=== PATIENT | female | born 1995 | race Caucasian/White ===

== ENCOUNTER 2021-03-13 03:49 | Emergency (ER) | payer OTHER ==
[~2021-03-13] VITALS: Ht 165.1 cm; Wt 66.2 kg
[2021-03-13 03:54] VITALS: BP 147/85
--- NOTE | 2021-03-13 04:01 | NUR ---
PT AMBULATED TO ER BED 4
--- NOTE | 2021-03-13 04:09 | NUR ---
PT PRESENTED TO THE ER W/ CC OF RIGHT EYE LACERATION, PT STATED "SHE WAS BRUSHING HER TEETH FROM THE RESTROOM, DOES NOT RECALL WALKING TO HER ROOM AND PASSED OUT, POSSIBLY HIT HER HEAD ON A DRESSER OR CORNER AND CAME TO THE ER FOR POSSIBLE STITCHES", NO SIGNS OF BLEEDING ON THE OPEN WOUND, STINGING PAIN AT TIMES, VSS, NO OTHER SIGNS OF ACUTE DISTRESS NOTED AT THIS TIME NO [facility]
--- NOTE | 2021-03-13 05:10 | NUR ---
ERMD AT BEDSIDE
--- NOTE | 2021-03-13 05:42 | NUR ---
TDAP VACCINE ADMINISTERED
[2021-03-13 06:08] LABS: BASOPHILS % (AUTO) 0.4 % (0.0-2.0); EOSINOPHILS # (AUTO) 0.1 K/uL (0-0.4); EOSINOPHILS % (AUTO) 0.8 % (0.0-4.0); HEMATOCRIT 30.3 % (36-48); HEMOGLOBIN 9.7 g/dL (12.0-16.0); LYMPHOCYTES # (AUTO) 1.4 K/uL (2.5-16.5); LYMPHOCYTES % (AUTO) 16.1 % (20.5-51.1); MEAN CORPUSCULAR HEMOGLOBIN 24 pg (27-31); MEAN CORPUSCULAR HGB CONC 32 g/dL (33-37); MEAN CORPUSCULAR VOLUME 75.7 fL (80-94); MONOCYTES # (AUTO) 0.7 K/uL (0.8-1.0); MONOCYTES % (AUTO) 7.6 % (1.7-9.3); NEUTROPHILS # (AUTO) 6.7 K/uL (1.8-7.7); NEUTROPHILS % (AUTO) 75.1 % (42.2-75.2); PLATELET COUNT (AUTO) 330 K/uL (140-450); RED CELL DISTRIBUTION WIDTH 15.2 % (11.6-13.7); WHITE BLOOD COUNT (AUTO) 8.9 K/uL (4.8-10.8)
[2021-03-13 06:23] LABS: ALBUMIN 3.8 g/dL (3.4-5.0); ANION GAP 12.4 (8-16); CARBON DIOXIDE 26.6 mmol/L (21-32); CREATININE 0.8 mg/dL (0.6-1.3); TOTAL BILIRUBIN 0.2 mg/dL (0.0-1.0)
[2021-03-13 07:08] VITALS: BP 147/85
--- NOTE | 2021-03-13 07:11 | NUR ---
Patient discharged with v/s stable. Written and verbal after care instructions given and explained. Patient verbalized understanding. Ambulatory with steady gait. All questions addressed prior to discharge. Advised to follow up with PMD.
== END 2021-03-13 07:11 | disposition home or self-care (01) ==
LOC: MED 03:49
DX: S01.111A Laceration without foreign body of right eyelid and periocular area, initial encounter (principal); R55 Syncope and collapse; W22.8XXA Striking against or struck by other objects, initial encounter; Y93.89 Activity, other specified; Y92.89 Other specified places as the place of occurrence of the external cause; Y99.8 Other external cause status
CPT/HCPCS: 36415; 80053; 83880; 84484; 85025; 90471; 90715; 93005; 99284